=== PATIENT | male | born 1960 | race Caucasian/White ===

== ENCOUNTER 2022-10-08 18:37 | Inpatient (IN) | payer BC, SELFPAY ==
[2022-10-08 19:41] LABS: CORONAVIRUS COVID-19 NAA NEGATIVE (NEGATIVE)
[2022-10-08] MEDS ORDERED: Acetaminophen 325 MG Tab PO ONE (20:58)
[2022-10-08] MEDS ORDERED: Sodium Chloride 0.9% 1,000 ML IV STA (22:00)
[2022-10-08] MEDS ORDERED: cefTRIAXone 2 GM in Sodium Chloride 0.9% 100 ML IV ONE (22:01)
[2022-10-09] MEDS: Sodium Chloride 0.9% 1,000 ML IV SCH ×3 (06:00→20:42)
[2022-10-09] MEDS: atorvaSTATin 40 MG Tab PO SCH (08:11)
[2022-10-09] MEDS: metFORMIN 500 MG Tab PO SCH (08:11)
[2022-10-09] MEDS: Aspirin 81 MG Tab.EC PO SCH (08:11)
[2022-10-09] MEDS: Gabapentin 300 MG Cap PO SCH ×4 (08:11→20:39)
[2022-10-09] MEDS: Acetaminophen 325 MG Tab PO PRN ×3 (08:12→20:40)
[2022-10-09] MEDS: Meloxicam 7.5 MG Tab PO SCH (08:12)
[2022-10-09] MEDS: Empagliflozin 10 MG Tab PO SCH (08:12)
[2022-10-09] MEDS: Lisinopril 20 MG Tab PO SCH (08:12)
[2022-10-09] MEDS ORDERED: Temazepam 15 MG Cap PO PRN (09:45)
[2022-10-09] MEDS ORDERED: Ibuprofen 600 MG Tab PO ONE (09:55)
[2022-10-09] MEDS: Heparin Sodium 5,000 Units/ML Vial SUBCUT SCH ×2 (10:14→17:51)
[2022-10-09] MEDS: Insulin Regular, Human 100 Units/ML 3 ML Vial SUBCUT SCH ×2 (12:35→18:55)
[2022-10-09] MEDS: cefTRIAXone 2 GM in Sodium Chloride 0.9% 100 ML IV SCH ×2 (21:00→21:54)
[2022-10-10] MEDS: Heparin Sodium 5,000 Units/ML Vial SUBCUT SCH ×2 (05:46→10:26)
[2022-10-10] MEDS: Acetaminophen 325 MG Tab PO PRN (05:47)
[2022-10-10] MEDS: Sodium Chloride 0.9% 1,000 ML IV SCH (05:47)
[2022-10-10] MEDS: Insulin Regular, Human 100 Units/ML 3 ML Vial SUBCUT SCH (09:58)
[2022-10-10] MEDS: metFORMIN 500 MG Tab PO SCH (10:24)
[2022-10-10] MEDS: atorvaSTATin 40 MG Tab PO SCH (10:25)
[2022-10-10] MEDS: Empagliflozin 10 MG Tab PO SCH (10:25)
[2022-10-10] MEDS: Aspirin 81 MG Tab.EC PO SCH (10:25)
[2022-10-10] MEDS: Gabapentin 300 MG Cap PO SCH (10:25)
[2022-10-10] MEDS: Lisinopril 20 MG Tab PO SCH (10:25)
[2022-10-10] MEDS: Meloxicam 7.5 MG Tab PO SCH (10:25)
[2022-10-10 11:47] LABS: BORDETELLA PARAPERT IS1001 Not Detected (Not Detected)
== END 2022-10-10 11:26 | disposition home or self-care (01) | DRG 722 ==
LOC: JD.ED 18:37 → JD.MS 22:00
PROVIDERS: ADMIT Internal Medicine; ATTEND Internal Medicine
DX: R50.9 Fever, unspecified (principal); J44.1 Chronic obstructive pulmonary disease with (acute) exacerbation; E11.42 Type 2 diabetes mellitus with diabetic polyneuropathy; I10 Essential (primary) hypertension; D72.825 Bandemia; F17.200 Nicotine dependence, unspecified, uncomplicated; E78.00 Pure hypercholesterolemia, unspecified; Z20.822 Contact with and (suspected) exposure to COVID-19; Z88.5 Allergy status to narcotic agent; Z79.82 Long term (current) use of aspirin; Z79.84 Long term (current) use of oral hypoglycemic drugs; Z79.899 Other long term (current) drug therapy; Z90.49 Acquired absence of other specified parts of digestive tract
CPT/HCPCS: 0241U; 36415; 71046; 71046-26; 80048; 80053; 81001; 82947; 83605; 83735; 84484; 85007; 85025; 85027; 86140; 87040; 87486; 87581; 87633; 87798; 93005; 93010; 96365; 99284; 99285-25; A9270-GY; J0696; J1644; J1815-GY; J7030

== ENCOUNTER 2023-03-25 21:44 | Emergency (ER) | payer BC, MEDICARE ==
[2023-03-25] MEDS ORDERED: Sodium Chloride 0.9% 10 ML Syringe FLUSH PRN (22:19)
[2023-03-25] MEDS ORDERED: Sodium Chloride 0.9% 1,000 ML IV STA (22:19)
[2023-03-25] MEDS ORDERED: Ondansetron 4 MG/2 ML SDV IVPUSH ONE (22:20)
[2023-03-25] MEDS ORDERED: HYDROmorphone 0.5 MG/0.5 ML Syringe IVPUSH ONE (22:20)
[2023-03-25] MEDS ORDERED: Pantoprazole 40 MG Vial IVPUSH ONE (22:21)
[2023-03-25 22:43] LABS: BASOPHILS ABSOLUTE AUTO 0.02 K/mm3 (0.01-0.08); BASOPHILS PERCENT AUTO 0.2 % (0.1-1.2); EOSINOPHILS ABSOLUTE AUTO 0.41 K/mm3 (0.04-0.54); EOSINOPHILS PERCENT AUTO 3.1 (0.8-7.0); HEMATOCRIT 48.5 % (40.1-51.0); HEMOGLOBIN 16.2 gm/dl (13.7-17.5); IMMATURE GRAN ABSOLUTE AUTO 0.03 K/mm3 (0.00-0.10); IMMATURE GRAN PERCENT AUTO 0.2 % (<=1.0); LYMPHOCYTES ABSOLUTE AUTO 2.91 K/mm3 (1.32-3.57); LYMPHOCYTES PERCENT AUTO 22.1 % (21.8-53.1); MEAN CORPUSCULAR HEMOGLOBIN 29.9 pg (25.7-32.2); MEAN CORPUSCULAR HGB CONC 33.4 g/dl (32.2-35.5); MEAN CORPUSCULAR VOLUME 89.5 fl (79.0-92.2); MEAN PLATELET VOLUME 10.7 fl (9.4-12.3); MONOCYTES ABSOLUTE AUTO 1.16 K/mm3 (0.30-0.82); MONOCYTES PERCENT AUTO 8.8 % (5.3-12.2); NEUTROPHILS ABSOLUTE AUTO 8.61 K/mm3 (1.78-5.38); NEUTROPHILS PERCENT AUTO 65.6 % (34.0-67.9); PLATELET COUNT,PLT 216 K/mm3 (163-337); RED BLOOD CELL COUNT 5.42 M/mm3 (4.63-6.08); WHITE BLOOD CELL COUNT,WBC 13.14 K/mm3 (4.23-9.07)
[2023-03-25 23:11] LABS: ALBUMIN 3.4 g/dl (3.4-5.0); ANION GAP 12.8 (5-15); BILIRUBIN TOTAL 0.4 mg/dL (0.2-1.0); BUN/CREATININE RATIO 17.3 (14-18); CALCIUM 8.6 mg/dL (8.5-10.1); CREATININE 1.1 mg/dL (0.7-1.3); EST CRCL DRUG DOSING (CG) 76.42 mL/min; POTASSIUM,K 3.8 mEq/L (3.5-5.1); PROTEIN TOTAL,TP 6.8 g/dl (6.4-8.2)
[2023-03-25] MEDS ORDERED: Iopamidol 612 MG/ML 100 ML Bottle IVPUSH ONE (23:33)
== END 2023-03-26 00:25 | disposition home or self-care (01) ==
LOC: JD.ED 21:44
DX: K29.00 Acute gastritis without bleeding (principal); E78.00 Pure hypercholesterolemia, unspecified; I10 Essential (primary) hypertension; E11.40 Type 2 diabetes mellitus with diabetic neuropathy, unspecified; Z79.82 Long term (current) use of aspirin; Z79.84 Long term (current) use of oral hypoglycemic drugs; Z79.899 Other long term (current) drug therapy; Z88.5 Allergy status to narcotic agent
CPT/HCPCS: 36415; 74177; 80053; 83690; 85025; 96361; 96374; 96375; 99284; C9113; J1170; J2405; J7030; Q9967